=== PATIENT | female | born 1985 | race Caucasian/White ===

== ENCOUNTER 2018-01-05 10:53 | Emergency (ER) | payer OTHER ==
[~2018-01-05] VITALS: Ht 157.5 cm; Wt 158.8 kg
[~2018-01-05 10:53] MED LIST: CHLORTHALIDONE50 MG PO; CYCLOBENZAPRINE10 MG PO; DICLOFENAC SODI50 MG PO; HYDROCHLOROTHIA25 MG PO; IBUPROFEN800 MG PO; LISINOPRIL20 MG PO; NAPROSYN500 MG PO; PSEUDOEPHEDRINE60 MG PO; SIMVASTATIN20 MG PO; TRAMADOL HCL50 MG PO; ZOFRAN ODT4 MG PO
[2018-01-05] MEDS ORDERED: IBUPROFEN800 MG PO (11:15)
[2018-01-05] MEDS ORDERED: KEFLEX500 MG PO (11:15)
[2018-01-05] MEDS ORDERED: PYRIDIUM200 MG PO (13:06)
[2018-01-05] MEDS ORDERED: CIPRO250 MG PO (13:06)
[2018-01-05] MEDS ORDERED: NORCO 10-325 T1 EACH PO (13:06)
== END 2018-01-05 13:50 | disposition home or self-care (01) ==
LOC: ED 10:53
DX: N39.0 Urinary tract infection, site not specified (principal); I10 Essential (primary) hypertension; Z79.899 Other long term (current) drug therapy
CPT/HCPCS: 81001; 96361; 96374; 96375; 99283; J0692; J1885; J2405; J7030

== ENCOUNTER 2018-01-06 11:15 | Emergency (ER) | payer OTHER ==
[~2018-01-06] VITALS: Ht 157.5 cm; Wt 158.8 kg
[~2018-01-06 11:15] MED LIST changes: +CIPRO250 MG PO; +KEFLEX500 MG PO; +NORCO 10-325 T1 EACH PO; +PYRIDIUM200 MG PO
--- OUTSIDE RECORDS SUMMARY | 2018-01-06 13:04 | XMS ---
PreManage Notification: CAMILLE VASQUEZ [employer] Events No recent Security Events currently on file CRITERIA MET - [facility] - 2 Visits in 30 Days CARE PROVIDERS There are no care providers on record at this time. [place] has no Care Guidelines for this patient. [place] VISIT COUNT (12 MO.) [address] [facility] [place] [facility]. TOTAL 2 NOTE: Visits indicate total known visits. ED/C VISIT TRACKING (12 MO.) 01/06/2018 11:[address] [facility] [place] TYPE: Emergency COMPLAINT: - URINE PROBLEM 01/05/2018 10:53 [facility] [place] TYPE: Emergency COMPLAINT: - POSS UTI INPATIENT VISIT TRACKING (12 MO.) No inpatient visits to display in this time frame [id number]
== END 2018-01-06 14:45 | disposition home or self-care (01) ==
LOC: ED 11:15
DX: N94.6 Dysmenorrhea, unspecified (principal); N20.0 Calculus of kidney; N39.0 Urinary tract infection, site not specified; I10 Essential (primary) hypertension; Z79.899 Other long term (current) drug therapy
CPT/HCPCS: 74176; 80053; 82150; 83690; 84703; 85025; 96361; 96374; 96375; 99284; J1170; J2405; J7030

== ENCOUNTER 2019-12-21 16:10 | Emergency (ER) | payer OTHER ==
[~2019-12-21] VITALS: Ht 157.5 cm; Wt 158.8 kg
== END 2019-12-21 18:23 | disposition home or self-care (01) ==
LOC: ED 16:10
DX: T63.441A Toxic effect of venom of bees, accidental (unintentional), initial encounter (principal); I10 Essential (primary) hypertension
CPT/HCPCS: 99282; Q0163

== ENCOUNTER 2020-11-12 19:19 | Emergency (ER) | payer OTHER ==
[~2020-11-12] VITALS: Ht 157.5 cm; Wt 158.8 kg
--- NOTE | 2020-11-13 18:41 | EKG ---
[facility] [address] [facility] [place], [place] [address] Signed Sinus tachycardia Otherwise normal ECG No previous ECGs available Confirmed by NARA FRAGA DO ([id number]) on 11/13/2020 6:41:02 PM Electronically Signed By: NARA FRAGA DO 11/13/20 184 PATIENT NAME: CAMILLE VASQUEZ CRISTINA Electrocardiogram DATE OF : 81 PHYSICIAN: NARA FRAGA DO REPORT #: [id number] REPORT IS CONFIDENTIAL AND NOT TO BE RELEASED WITHOUT AUTHORIZATION
== END 2020-11-13 00:28 | disposition home or self-care (01) ==
LOC: ED 19:19
DX: U07.1 COVID-19 (principal); I10 Essential (primary) hypertension
CPT/HCPCS: 71045; 80053; 84484; 84703; 85025; 93005; 93010; 99285-25; C9803; M0243; Q0244; U0003

== ENCOUNTER 2023-08-06 12:33 | Emergency (ER) | payer OTHER ==
[~2023-08-06] VITALS: Ht 157.5 cm; Wt 183.3 kg
[~2023-08-06 12:33] MED LIST changes: +BACTRIM DS TAB1 EACH PO; +HYDROCODON-ACE1 EA10 PO; +ONDANSETRON ODT4 MG PO
[2023-08-06] MEDS ORDERED: KETOROLAC TROMETHAMINE 30 MG/ML VIAL IM ONE (13:00)
[2023-08-06] MEDS ORDERED: CYCLOBENZAPRINE HCL 10 MG TAB PO ONE (13:00)
[2023-08-06 13:25] VITALS: BP 160/94
== END 2023-08-06 13:25 | disposition home or self-care (01) ==
LOC: ED 12:33
DX: M25.561 Pain in right knee (principal); I10 Essential (primary) hypertension
CPT/HCPCS: 73560; 96372; 99283-25; J1885